=== PATIENT | male | born 2000 | race Caucasian/White ===

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

== ENCOUNTER 2022-05-28 17:08 | Emergency (ER) | payer OTHER ==
[~2022-05-28] VITALS: Wt 122.5 kg
[2022-05-28 17:09] VITALS: BP 145/78
== END 2022-05-28 22:37 | disposition home or self-care (01) ==
LOC: ED 17:08
DX: S93.402A Sprain of unspecified ligament of left ankle, initial encounter (principal); X50.1XXA Overexertion from prolonged static or awkward postures, initial encounter; Y93.89 Activity, other specified; Y92.89 Other specified places as the place of occurrence of the external cause; Y99.8 Other external cause status